=== PATIENT | male | born 2000 | race Caucasian/White ===

== ENCOUNTER 2022-05-03 11:10 | Emergency (ER) | payer SELFPAY ==
[2022-05-03 11:12] VITALS: BP 153/79; PULSE 98; RESP 16; TEMP 37.3; O2SAT 100
--- NOTE | 2022-05-03 11:16 | ED.URI ---
HPI - URI/Sore Throat General Chief Complaint: Upper Respiratory Infection Stated Complaint: Sore throat Time Seen by Provider: 05/03/22 11:12 Source: patient and RN notes reviewed Mode of arrival: ambulatory Limitations: no limitations History of Present Illness MD elicited complaint: sore throat Onset (ago): day(s) (1) Consistency: constant Severity: moderate Able to tolerate fluids by mouth: Yes Exacerbating factors: swallowing Relieving factors: nothing Context: sick contacts ( family member with strep) Associated symptoms: denies other symptoms Related Data Allergies Allergy/AdvReac Type Severity Reaction Status Date / Time No Known Allergies Allergy Verified 05/03/22 11:31 Review of Systems Review of Systems: All systems reviewed & are unremarkable except as noted in HPI and below PMFSH Past Medical History Medical History (Updated 05/03/22 @ 12:10 by Carlito Fisher MD) No active medical problems Surgical History Surgical History (Updated 05/03/22 @ 11:19 by Carlito Fisher MD) No pertinent past surgical history Exam Const: General: healthy appearing, no acute distress and alert Nutritional Appearance: well nourished Orientation/consciousness: patient oriented x3 Limitations: no limitations HENMT: Head: normal to inspection Ears: external ears normal Face/Nose/Sinus: Normal external nose present Face and sinus: normal facial exam Mouth: Yes moist mucous membranes Eyes: Conjunctivae: conjunctivae normal Pupils: Equal, round and reactive pupils present EOM: EOMs intact bilaterally Neck: Neck: normal visual inspection Resp: Effort & Inspection: normal respiratory effort Auscultation: clear to auscultation bilaterally Cardio: Rate: regular rate Rhythm: regular rhythm GI: GI Palp: Yes Soft to palpation and No Tenderness to palpation present (GI) Auscultation: normal bowel sounds Back/Spine/Pelvis: Cervical Spine: cervical ROM normal Thoracic/Lumbar Spine: thoraco-lumbar ROM normal Skin: General skin exam: normal color Rashes: no rashes Neuro: General: patient oriented x3, moves all extremities, no focal motor deficits and CN's II-XI intact bilaterally Speech: normal speech Gait exam (Neuro): Normal gait present Extrem: General: normal to inspection and no clubbing, cyanosis or edema Psych: Mental Status: mental status grossly normal Affect: normal affect Attitude: cooperative Course Vital Signs Vital signs: Vital Signs Temperature 37.3 C 05/03/22 11:12 Pulse Rate 98 05/03/22 11:12 Respiratory Rate 16 05/03/22 11:12 Blood Pressure 153/79 H 05/03/22 11:12 Pulse Oximetry 100 05/03/22 11:12 Oxygen Delivery Room Air 05/03/22 11:12 Temperature 37.2 C 05/03/22 12:20 Pulse Rate 80 05/03/22 12:20 Respiratory Rate 20 05/03/22 12:20 Blood Pressure 130/57 L 05/03/22 12:20 Pulse Oximetry 100 05/03/22 12:20 Oxygen Delivery Room Air 05/03/22 12:20 MDM - URI/Sore Throat Differential Diagnosis Differential diagnosis: Likely upper respiratory infection, viral infection and pharyngitis Lab Data Attestation: I reviewed the patient's lab results. Labs: Lab Results 05/03/22 Range/Units 11:14 Group A Strep (PCR) Detected A (Negative) Discharge Plan Discharge Clinical Impression: Acute streptococcal pharyngitis Patient Disposition: Home, Self-Care Condition: Stable Instructions: Antibiotic Form, Strep Throat (ED) Additional Instructions: focusing on lips, no one drinks beer glass, you should not drink from anyone else's glasses, in 3-4 days get a new toothbrush. Tylenol and or Motrin as needed fever or throat pain. Prescriptions: New amoxicillin 250 mg capsule 250 mg PO Q8H 10 Days Qty: 30 0RF Follow-up/Referrals: Cliff Rodriguez MD [Primary Care Provider] - Stand Alone Forms: Work/School Release IP Time of Disposition: 12:10
[2022-05-03 12:06] LABS: Strep Group A RT-PCR DETECTED (Negative)
[2022-05-03 12:20] VITALS: BP 130/57; PULSE 80; RESP 20; TEMP 37.2; O2SAT 100
== END 2022-05-03 12:23 | disposition home or self-care (01) ==
PROVIDERS: Emergency Provider Emergency Medicine; PCP Family Medicine
DX: J02.0 Streptococcal pharyngitis (principal)
CPT/HCPCS: 87651; 99283

== ENCOUNTER 2022-11-10 19:42 | Emergency (ER) | payer OTHER, SELFPAY ==
[2022-11-10 19:52] VITALS: BP 148/85; PULSE 93; RESP 16; TEMP 37.9; O2SAT 100
--- NOTE | 2022-11-10 19:56 | ED.ABDPAIN ---
HPI - Abdominal Pain General Chief Complaint: Unspecified Stated Complaint: abdominal pain Source: patient and RN notes reviewed Mode of arrival: ambulatory Limitations: no limitations History of Present Illness HPI narrative: patient states he was moving some lead pipe when he suddenly had pain in his right groin right lower quadrant. Seems to be getting worse throughout the day. Denies any other symptoms. He is concerned about having hernia. MD elicited complaint: abdominal pain Pertinent past history: none Onset (ago): hour(s) (12) Pain Consistency: constant Location: RLQ Severity: mild Quality: aching and dull Radiation: none Migration to: no migration Exacerbating factors: movement Relieving factors: nothing Context: confirms recent injury Associated symptoms: denies other symptoms Related Data Allergies Allergy/AdvReac Type Severity Reaction Status Date / Time No Known Allergies Allergy Verified 05/03/22 11:31 [facility] Past Medical History Medical History No active medical problems Surgical History Surgical History (Updated 05/03/22 @ 11:19 by Carlito Fisher MD) No pertinent past surgical history Exam Const: General: healthy appearing, no acute distress and alert Nutritional Appearance: well nourished Orientation/consciousness: patient oriented x3 Limitations: no limitations HENMT: Head: normal to inspection Ears: external ears normal Face/Nose/Sinus: Normal external nose present Face and sinus: normal facial exam Mouth: Yes moist mucous membranes Eyes: Conjunctivae: conjunctivae normal Pupils: Equal, round and reactive pupils present EOM: EOMs intact bilaterally Neck: Neck: normal visual inspection Resp: Effort & Inspection: normal respiratory effort Auscultation: clear to auscultation bilaterally Cardio: Rate: regular rate Rhythm: regular rhythm GI: GI Palp: Yes Soft to palpation and No Tenderness to palpation present (GI) Auscultation: normal bowel sounds : Male General Exam: Yes normal external exam Scrotum: scrotum normal and no inguinal hernias Testes: no testicular swelling and no testicular tenderness Other: tenderness with palpation of the right inguinal ring no obvious hernia could be palpated. This reproduces the patient's symptoms. Back/Spine/Pelvis: Cervical Spine: cervical ROM normal Thoracic/Lumbar Spine: thoraco-lumbar ROM normal Skin: General skin exam: normal color Rashes: no rashes Neuro: General: patient oriented x3, moves all extremities, no focal motor deficits and CN's II-XI intact bilaterally Speech: normal speech Gait exam (Neuro): Normal gait present Extrem: General: normal to inspection and no clubbing, cyanosis or edema Psych: Mental Status: mental status grossly normal Affect: normal affect Attitude: cooperative Course Vital Signs Vital signs: Vital Signs Temperature 37.9 C H 11/10/22 19:52 Pulse Rate 93 11/10/22 19:52 Respiratory Rate 16 11/10/22 19:52 Blood Pressure 148/85 H 11/10/22 19:52 Pulse Oximetry 100 11/10/22 19:52 Oxygen Delivery Room Air 11/10/22 19:52 Temperature 37.2 C 11/10/22 20:33 Pulse Rate 100 11/10/22 20:33 Respiratory Rate 20 11/10/22 20:33 Blood Pressure 140/90 11/10/22 20:33 Pulse Oximetry 100 11/10/22 20:33 Oxygen Delivery Room Air 11/10/22 20:33 MDM - Abdominal Pain Differential Diagnosis Differential diagnosis: Likely abdominal pain and other ( Inguinal hernia) Discharge Plan Discharge Clinical Impression: Rt inguinal pain Patient Disposition: Home, Self-Care Condition: Stable Instructions: Inguinal Hernia (ED) Additional Instructions: use Tylenol and or Motrin as needed for pain. Follow-up with surgery if symptoms persist for more than 5 days. Prescriptions: No Action amoxicillin 250 mg capsule 250 mg PO Q8H 10 Days Qty: 30 0RF Follow-up/Referrals: UNKNOWN,DOCTOR [Prima
[2022-11-10 20:33] VITALS: BP 140/90; PULSE 100; RESP 20; TEMP 37.2; O2SAT 100
== END 2022-11-10 20:34 | disposition home or self-care (01) ==
PROVIDERS: Emergency Provider Emergency Medicine
DX: K40.90 Unilateral inguinal hernia, without obstruction or gangrene, not specified as recurrent (principal)
CPT/HCPCS: 99281